=== PATIENT | female | born 1980 | race Caucasian/White ===

== ENCOUNTER → 2017-03-01 | Outpatient (REF) ==
[~2017-03-01] MED LIST: FIORICET 325 MG1 TA1 PO; HEATHER0.35 MG PO; IRON325 MG PO; KEFLEX500 MG PO; MOTRIN 800800 MG/TAB PO; NORCO 325 MG-51 TAB PO; PRENATAL1 TA7 PO; TYLENOL 500MG500 MG PO
== END ==
LOC: ZLAB.WCH 11:31
DX: Z01.89 Encounter for other specified special examinations (principal)

== ENCOUNTER → 2018-12-28 | Outpatient (CLI) | payer OTHER | LOC: MC.RAD 12-21 11:30 | DX: Z12.31 Encounter for screening mammogram for malignant neoplasm of breast (principal) ==

== ENCOUNTER → 2020-03-20 | Outpatient (CLI) | payer OTHER | LOC: MC.RAD 07:59 | DX: Z12.31 Encounter for screening mammogram for malignant neoplasm of breast (principal) ==

== ENCOUNTER → 2021-04-23 | Outpatient (CLI) | payer OTHER | LOC: MC.RAD 03-21 07:30 | DX: Z12.31 Encounter for screening mammogram for malignant neoplasm of breast (principal) ==

== ENCOUNTER → 2022-06-04 | Outpatient (CLI) | payer OTHER | LOC: MC.RAD 13:13 | DX: Z12.31 Encounter for screening mammogram for malignant neoplasm of breast (principal) ==